=== PATIENT | female | born 1955 | race Caucasian/White ===

== ENCOUNTER 2019-12-31 18:40 | Outpatient (CLI) | payer OTHER ==
[2019-12-31 19:09] LABS: BASOPHILS % (AUTO) 0.3 %; CALCIUM 9.2 mg/dL (8.5-10.3); CREATININE 0.8 mg/dL (0.4-1.0); EOSINOPHILS # (AUTO) 0.1 10^3/uL (0.0-0.7); EOSINOPHILS % (AUTO) 0.7 %; LYMPHOCYTES # (AUTO) 1.6 10^3/uL (1.5-3.5); LYMPHOCYTES % (AUTO) 16.7 %; MEAN CORPUSCULAR HEMOGLOBIN 29.3 pg (27.0-31.0); MEAN CORPUSCULAR HGB CONC 32.2 g/dL (32.0-36.0); MEAN PLATELET VOLUME 10.6 fL (7.9-10.8); MONOCYTES # (AUTO) 0.5 10^3/uL (0.0-1.0); MONOCYTES % (AUTO) 5.6 %; NEUTROPHILS # (AUTO) 7.2 10^3/uL (1.5-6.6); NEUTROPHILS % (AUTO) 76.3 %; PLT - PLATELET COUNT 323 10^3/uL (130-450); RED BLOOD COUNT 4.44 10^6/uL (4.20-5.40); RED CELL DISTRIBUTION WIDTH 13.4 % (12.0-15.0); WHITE BLOOD COUNT 9.5 x10^3/uL (4.8-10.8)
== END 2019-12-31 18:41 | disposition home or self-care (01) ==
LOC: LAB 18:40
PROVIDERS: ATTEND Physician Assistant
DX: I50.9 Heart failure, unspecified (principal)
CPT/HCPCS: 36415; 80048; 83880; 85025

== ENCOUNTER 2020-05-28 10:04 | Emergency (ER) | payer SELFPAY ==
--- NOTE | 2020-05-28 10:10 | ED Physician Documentation ---
PD HPI DYSPNEA - Stated complaint Stated Complaint: SOA/SWOLLEN LEGS - History obtained from History obtained from: Patient - History of Present Illness Timing - onset: How many weeks ago (1) Timing - onset during: Rest (the past couple days), Light activity Timing - duration: Weeks (1) Timing - details: Gradual onset, Still present Inciting event(s): Other (has noted increased swelling of both legs the past week.). No: Out of meds, URI, Immobilization/travel Improved by: Rest Worsened by: Exertion, Laying flat. No: Coughing Associated symptoms: Bilateral edema. No: Fever, Cough, Wheezing Similar symptoms before: Diagnosis (had pneumonia and cardiomyopathy with cardiac arrest about Nov 2017, with ECHO showing EF 20%. On heart meds and ECHO improved to normal 65% over few months, per Printer Assistant, Dr. Alcaraz. She had not been back to Cardiology the past year.) Recently seen: Not recently seen (has been on same meds the past year, refilled by PCP. Has not seen then recently. Today, seen at [facility] and referred to ER for evaluation.) Review of Systems Constitutional: denies: Fever, Chills Nose: denies: Rhinorrhea / runny nose, Congestion Throat: denies: Sore throat Cardiac: reports: Pedal edema. denies: Chest pain / pressure, Palpitations, Calf pain Respiratory: denies: Dyspnea, Cough GI: reports: Constipation. denies: Abdominal Pain, Nausea, Vomiting, Diarrhea Skin: reports: Rash (redness anterior aspect both lower legs slowly the past couple of days. Not too tender. No drainage.). denies: Lesions Musculoskeletal: denies: Neck pain, Back pain Neurologic: reports: Generalized weakness. denies: Focal weakness, Numbness, Near syncope PD PAST MEDICAL HISTORY - Past Medical History Cardiovascular: Congestive heart failure, Hypertension Respiratory: None Neuro: None Endocrine/Autoimmune: Type 2 diabetes - Present Medications Home Medications: Ambulatory Orders Medication Instructions Recorded Confirmed Amlodipine Besylate 5 mg DAILY 05/28/20 05/28/20 Furosemide [Lasix] 20 mg PO DAILY #20 tablet 05/28/20 LORazepam [Ativan] 1 mg PO BID PRN #10 tablet 05/28/20 Losartan Potassium 50 mg DAILY 05/28/20 05/28/20 Metoprolol Tartrate 100 mg PO BID 05/28/20 05/28/20 Omeprazole 20 mg PO DAILY 05/28/20 05/28/20 Ondansetron Odt [Zofran] 4 mg TL Q6H PRN #10 tablet 05/28/20 Potassium Chloride 10 meq PO DAILY #20 tablet.er 05/28/20 Spironolactone 12.5 mg DAILY 05/28/20 05/28/20 Tramadol HCl 50 mg TID 05/28/20 05/28/20 - Allergies Allergies/Adverse Reactions: Allergies Allergy/AdvReac Type Severity Reaction Status Date / Time nickel Allergy Rash Verified 05/28/20 10:12 PD ED PE NORMAL - Vitals Vital signs reviewed: Yes - General General: Alert and oriented X 3, No acute distress (but seems anxious. ), Well developed/nourished - HEENT HEENT: Ears normal, Moist mucous membranes, Pharynx benign - Neck Neck: Supple, no meningeal sign, No adenopathy, Other (JVD noted at 45 degrees) - Cardiac Cardiac: RRR, No murmur - Respiratory Respiratory: No respiratory distress. No: Clear bilaterally (some crackles at bases about [address]. ) - Abdomen Abdomen: Normal bowel sounds, Soft - Back Back: No CVA TTP - Derm Derm: Normal color, Warm and dry - Extremities Extremities: No tenderness to palpate, Normal ROM s pain, No calf tenderness / cord, Other - Neuro Neuro: Alert and oriented X 3, No motor deficit, Normal speech Results - Vitals Vitals: Vital Signs - 24 hr 05/28/20 05/28/20 05/28/20 10:06 11:00 11:09 Temperature 37.1 C 37.3 C Heart Rate 83 71 70 Respiratory 20 20 18 Rate Blood Pressure 136/105 H 186/74 H 176/73 H O2 Saturation 96 96 96 05/28/20 05/28/20 05/28/20 12:00 13:56 15:00 Temperature Heart Rate 60 57 L 92 Respiratory 16 14 16 Rate Blood Pressure 156/77 H 162/64 H 132/77 H O2 Saturation 93 100 100 Oxygen O2 Source Room air - EKG (time done) 10:21 Rate: Rate (enter#) (77) Rhythm: NSR [place]: Normal Intervals: Normal [place] QRS: Normal Ischemia: Normal ST segments. No: ST elevation c/w ischemia, ST depression - Labs Labs: Laboratory Tests 05/28/20 05/28/20 05/28/20 10:50 10:50 10:50 WBC 10.4 RBC 4.43 Hgb 13.0 Hct 40.0 MCV 90.3 MCH 29.3 MCHC 32.5 RDW 13.3 Plt Count 299 MPV 10.9 H Neut # (Auto) 9.3 H Lymph # (Auto) 0.7 L [place] # (Auto) 0.3 Eos # (Auto) 0.0 Baso # (Auto) 0.0 Absolute Nucleated RBC 0.00 Nucleated RBC % 0.0 Sodium 136 Potassium 3.4 L Chloride 102 Carbon Dioxide 26 Anion Gap 8.0 BUN 11 Creatinine 0.9 Estimated GFR (MDRD) 63 L Glucose 175 H Calcium 9.3 Magnesium 2.4 Total Bilirubin 0.7 AST 45 H ALT 18 Alkaline Phosphatase 111 Troponin I High Sens 5.0 B-Natriuretic Peptide Total Protein 9.4 H Albumin 4.0 Globulin 5.4 H Albumin/Globulin Ratio 0.7 L Lipase 25 05/28/20 10:50 WBC RBC Hgb Hct MCV MCH MCHC RDW Plt Count MPV Neut # (Auto) Lymph # (Auto) [place] # (Auto) Eos # (Auto) Baso # (Auto) Absolute Nucleated RBC Nucleated RBC % Sodium Potassium Chloride Carbon Dioxide Anion Gap BUN Creatinine Estimated GFR (MDRD) Glucose Calcium Magnesium Total Bilirubin AST ALT Alkaline Phosphatase Troponin I High Sens B-Natriuretic Peptide 319 H Total Protein Albumin Globulin Albumin/Globulin Ratio Lipase - Rads (name of study) chest xray Radiology: Prelim report reviewed (no acute process), See rad report PD MEDICAL DECISION MAKING - ED course Complexity details: re-evaluated patient (She did urinate a lot here and is feeling improved. Oximeter is good. ), considered differential (sounds like CHF over the past week without new illness/URI symptoms. Does have anxiety with this. ), d/w patient, d/w device sales consultant (s/w Dr. Alcaraz, her carpet installer, who suggested some med changes. ) Departure - Departure Disposition: 01 Home, Self Care Clinical Impression: Dyspnea Qualifiers: Dyspnea type: unspecified Qualified Code(s): R06.00 - Dyspnea, unspecified CHF (congestive heart failure) Qualifiers: Heart failure type: unspecified Heart failure chronicity: acute on chronic Qualified Code(s): I50.9 - Heart failure, unspecified Cardiomyopathy Qualifiers: Cardiomyopathy type: unspecified Qualified Code(s): I42.9 - Cardiomyopathy, unspecified Condition: Stable Record reviewed to determine appropriate education?: Yes Instructions: ED CHF General, ED Dyspnea Shortness of Breath Follow-Up: ADITYA LEE PA-C [Primary Care Provider] - Ruben Alcaraz MD [Physician No Access] - Prescriptions: LORazepam [Ativan] 1 mg PO BID PRN #10 tablet PRN Reason: Anxiety Furosemide [Lasix] 20 mg PO DAILY #20 tablet Potassium Chloride 10 meq PO DAILY #20 tablet.er Ondansetron Odt [Zofran] 4 mg TL Q6H PRN #10 tablet PRN Reason: Nausea / Vomiting Comments: I talked with Dr. Alcaraz your carpet installer who suggested the following: Increase your spironolactone to 25 mg daily from the current 12.5 mg. 2. Add furosemide 20 mg daily 3. Add a potassium supplement daily In addition we can add ondansetron if needed for nausea and lorazepam if needed for anxiety in the short-term. I would anticipate improvement in your breathing over the next several days. Contact Dr. Alcaraz's office for follow-up appointment for next week or see if they want to just keep it for February 21 though it sounded like he wanted a sooner follow-up Discharge Date/Time: 05/28/20 16:11
[2020-05-28] MEDS ORDERED: FUROSEMIDE 40 MG/4 ML VIAL IVP STA (10:51)
[2020-05-28] MEDS ORDERED: MAG HYDROX/AL HYDROX/SIMETH 30 ML UDC PO STA (10:51)
[2020-05-28] MEDS ORDERED: ONDANSETRON 4 MG/2 ML VIAL IVP STA (10:51)
[2020-05-28] MEDS ORDERED: FAMOTIDINE 20 MG/2 ML SYRINGE IVP STA (10:51)
[2020-05-28] MEDS ORDERED: LORazepam 2 MG/ML VIAL IVP STA (10:51)
[2020-05-28] MEDS ORDERED: LIDOCAINE VISCOUS 2% 15 ML UDC MM STA (10:51)
[2020-05-28 11:09] LABS: BASOPHILS % (AUTO) 0.4 %; EOSINOPHILS % (AUTO) 0.4 %; LYMPHOCYTES # (AUTO) 0.7 10^3/uL (1.5-3.5); MEAN CORPUSCULAR HEMOGLOBIN 29.3 pg (27.0-31.0); MEAN CORPUSCULAR HGB CONC 32.5 g/dL (32.0-36.0); MEAN CORPUSCULAR VOLUME 90.3 fL (81.0-99.0); MEAN PLATELET VOLUME 10.9 fL (7.9-10.8); MONOCYTES # (AUTO) 0.3 10^3/uL (0.0-1.0); NEUTROPHILS # (AUTO) 9.3 10^3/uL (1.5-6.6); NEUTROPHILS % (AUTO) 88.6 %; PLT - PLATELET COUNT 299 10^3/uL (130-450); RED BLOOD COUNT 4.43 10^6/uL (4.20-5.40); RED CELL DISTRIBUTION WIDTH 13.3 % (12.0-15.0); WHITE BLOOD COUNT 10.4 x10^3/uL (4.8-10.8)
--- NOTE | 2020-05-28 11:13 | XRAY Report ---
PROCEDURE: Chest 1 View X-Ray INDICATIONS: Chest Pain TECHNIQUE: One view of the chest was acquired. COMPARISON: None FINDINGS: Surgical changes and devices: None. Lungs and pleura: No pleural effusions or pneumothorax. Lungs are clear. Mediastinum: Mediastinal contours appear normal. Heart size is normal. Bones and chest wall: No suspicious bony lesions. Overlying soft tissues appear unremarkable. IMPRESSION: No acute cardiopulmonary disease process. Reviewed by: Amira Mueller MD, PhD on 05/28/2020 11:12 AM PDT Approved by: Amira Mueller MD, PhD on 05/28/2020 11:12 AM PDT Station ID: [id number]
[2020-05-28 11:28] LABS: ALBUMIN/GLOBULIN RATIO 0.7 (1.0-2.2); BILIRUBIN,TOTAL 0.7 mg/dL (0.2-1.0); CALCIUM 9.3 mg/dL (8.5-10.3); CREATININE 0.9 mg/dL (0.4-1.0); MAGNESIUM 2.4 mg/dL (1.7-2.8); TOTAL PROTEIN 9.4 g/dL (6.7-8.2)
[2020-05-28] MEDS ORDERED: GI COCKTAIL 120 ML BOTTLE PO PRN (11:43)
[2020-05-28] MEDS ORDERED: POTASSIUM CHLOR 10 MEQ/100 ML 10 MEQ/100 ML BAG IV ONE (11:51)
[2020-05-28 16:19] VITALS: BP 132/77
== END 2020-05-28 16:11 | disposition home or self-care (01) ==
LOC: ED 10:04
DX: I11.0 Hypertensive heart disease with heart failure (principal); I50.9 Heart failure, unspecified; I42.9 Cardiomyopathy, unspecified; F41.9 Anxiety disorder, unspecified; E11.9 Type 2 diabetes mellitus without complications
CPT/HCPCS: 36415; 71045; 80053; 83690; 83735; 83880; 84484; 85025; 93005; 96374; 96375; 99284; 99285; A9270; J2060

== ENCOUNTER 2020-06-09 15:11 | Emergency (ER) | payer SELFPAY ==
--- NOTE | 2020-06-09 15:40 | ED Physician Documentation ---
PD HPI DYSPNEA - Stated complaint Stated Complaint: SOA/FAINT - Chief complaint Chief Complaint: Cardiac - History obtained from History obtained from: Patient - History of Present Illness Timing - onset: Today Timing - onset during: Light activity (she has had some dyspnea feeling for few weeks. No wheezing nor cough. Feeling of anxiety as well and was improved with Ativan given at recent ED visit for same symptoms. She has appt with PMD in few days to discuss meds for anxiety. Has been on many SSRIs in the past without improvement.) Timing - details: Gradual onset, Waxing and waning Inciting event(s): Emotional event. No: URI, Exercise, Immobilization/travel Improved by: Rest Worsened by: Exertion, Other (anxiety) Associated symptoms: No: Fever, Cough Similar symptoms before: Diagnosis (anxiety) Recently seen: Emergency Dept (couple weeks ago for same. Had gotten Rx for Ativan to use PRN and only just yesterday had used the last of them, she says did work for the symptoms when used PRN.) Review of Systems Constitutional: denies: Fever, Chills, Myalgias Nose: denies: Rhinorrhea / runny nose, Congestion Throat: denies: Sore throat Respiratory: denies: Cough GI: denies: Nausea, Vomiting, Diarrhea Skin: denies: Rash, Lesions Neurologic: reports: Near syncope (felt lightheaded when breathing harder today, some tingling in fingers as well.). denies: Focal weakness, Numbness, Altered mental status, Headache PD PAST MEDICAL HISTORY - Past Medical History Cardiovascular: Congestive heart failure, Hypertension Respiratory: None Neuro: None Endocrine/Autoimmune: Type 2 diabetes Psych: Anxiety - Present Medications Home Medications: Ambulatory Orders Medication Instructions Recorded Confirmed Amlodipine Besylate 5 mg DAILY 05/28/20 05/28/20 Furosemide [Lasix] 20 mg PO DAILY #20 tablet 05/28/20 LORazepam [Ativan] 1 mg PO BID PRN #10 tablet 05/28/20 Losartan Potassium 50 mg DAILY 05/28/20 05/28/20 Metoprolol Tartrate 100 mg PO BID 05/28/20 05/28/20 Omeprazole 20 mg PO DAILY 05/28/20 05/28/20 Ondansetron Odt [Zofran] 4 mg TL Q6H PRN #10 tablet 07/23/20 Potassium Chloride 10 meq PO DAILY #20 tablet.er 05/28/20 Spironolactone 12.5 mg DAILY 05/28/20 05/28/20 Tramadol HCl 50 mg TID 05/28/20 05/28/20 Amitriptyline HCl 25 mg PO QPM PRN #20 tablet 06/09/20 LORazepam [Ativan] 1 mg PO BID PRN #12 tablet 06/09/20 - Allergies Allergies/Adverse Reactions: Allergies Allergy/AdvReac Type Severity Reaction Status Date / Time nickel Allergy Rash Verified 06/09/20 15:14 - Social History Does the pt smoke?: No Smoking Status: Never smoker PD ED PE NORMAL - Vitals Vital signs reviewed: Yes - General General: Alert and oriented X 3, Well developed/nourished, Other (presents as very anxious, states gets worried about things easily. Very worried/anxious about having serious process when she gets the dyspnea feeling. ) - HEENT HEENT: Pharynx benign - Neck Neck: Supple, no meningeal sign, No adenopathy - Cardiac Cardiac: RRR, No murmur - Respiratory Respiratory: No respiratory distress, Clear bilaterally - Abdomen Abdomen: Soft, Non tender - Derm Derm: Normal color, Warm and dry - Extremities Extremities: No tenderness to palpate, Normal ROM s pain, No edema, No calf tenderness / cord - Neuro Neuro: Alert and oriented X 3, No motor deficit, Normal speech Results - Vitals Vitals: Oxygen O2 Source Room air - EKG (time done) 15:16 Rate: Rate (enter#) (88) Rhythm: NSR [place]: Normal Intervals: Normal [place] QRS: Normal Ischemia: Normal ST segments. No: ST elevation c/w ischemia, ST depression - Labs Labs: Laboratory Tests 06/09/20 06/09/20 06/09/20 15:40 15:40 15:40 WBC 11.9 H RBC 4.60 Hgb 13.5 Hct 41.4 MCV 90.0 MCH 29.3 MCHC 32.6 RDW 13.3 Plt Count 359 MPV 10.7 Neut # (Auto) 9.7 H Lymph # (Auto) 1.2 L [place] # (Auto) 0.8 Eos # (Auto) 0.0 Baso # (Auto) 0.0 Absolute Nucleated RBC 0.00 Nucleated RBC % 0.0 Sodium 137 Potassium 4.1 Chloride 98 L Carbon Dioxide 29 Anion Gap 10.0 BUN 17 Creatinine 1.0 Estimated GFR (MDRD) 56 L Glucose 132 H Calcium 9.4 Total Bilirubin 0.7 AST 22 ALT 18 Alkaline Phosphatase 109 Troponin I High Sens < 2.3 L Total Protein 9.4 H Albumin 4.4 Globulin 5.0 H Albumin/Globulin Ratio 0.9 L Lipase 28 - Rads (name of study) chest xray Radiology: Prelim report reviewed (no acute process), See rad report PD MEDICAL DECISION MAKING - ED course Complexity details: re-evaluated patient (Normal labs and xray. Her suymptoms seem largely anxiety. Can give short term Ativan again, with discussion that this would not be the penitentiary solution (unless occasional PRN for acute attacks, but not regular dosing) as other meds are better.), considered differential, d/w patient ED course: She had not had improvement with many different SSRIs tried in past, nor with Trazodone. She did not seem familiar with Elavil/amitryptilline, which could be used for sleep and some general anxiety and would be effective short term unlike SSRIs and such. She can discuss this with her PMD in appt this week. Short term Ativan to bridge getting started on other anti-anxiety med. Departure - Departure Disposition: 01 Home, Self Care Clinical Impression: Anxiety Dyspnea Qualifiers: Dyspnea type: shortness of breath Qualified Code(s): R06.02 - Shortness of breath Condition: Stable Record reviewed to determine appropriate education?: Yes Follow-Up: ADITYA LEE PA-C [Primary Care Provider] - Ruben Alcaraz MD [Physician No Access] - Prescriptions: Amitriptyline HCl 25 mg PO QPM PRN #20 tablet PRN Reason: Insomnia LORazepam [Ativan] 1 mg PO BID PRN #12 tablet PRN Reason: Anxiety Comments: Continue the Lorazepam twice daily if needed for anxiety. Continue your other usual medications. Follow-up with your primary care tomorrow. See what they would like to try for you for sleep/anxiety. One consideration would be a low dose amitriptyline or nortriptyline. This would be taken at night to help with sleep and can provide some level of helping with anxiety through the day but should not make you feel daytime sleepy. Discharge Date/Time: 06/09/20 17:22
[2020-06-09 15:49] LABS: BASOPHILS % (AUTO) 0.3 %; EOSINOPHILS % (AUTO) 0.3 %; HGB - HEMOGLOBIN 13.5 g/dL (12.0-16.0); LYMPHOCYTES # (AUTO) 1.2 10^3/uL (1.5-3.5); LYMPHOCYTES % (AUTO) 10.3 %; MEAN CORPUSCULAR HEMOGLOBIN 29.3 pg (27.0-31.0); MEAN CORPUSCULAR HGB CONC 32.6 g/dL (32.0-36.0); MEAN PLATELET VOLUME 10.7 fL (7.9-10.8); MONOCYTES # (AUTO) 0.8 10^3/uL (0.0-1.0); MONOCYTES % (AUTO) 6.6 %; NEUTROPHILS # (AUTO) 9.7 10^3/uL (1.5-6.6); NEUTROPHILS % (AUTO) 82.1 %; PLT - PLATELET COUNT 359 10^3/uL (130-450); RED CELL DISTRIBUTION WIDTH 13.3 % (12.0-15.0); WHITE BLOOD COUNT 11.9 x10^3/uL (4.8-10.8)
[2020-06-09 16:03] LABS: ALBUMIN 4.4 g/dL (3.2-5.5); ALBUMIN/GLOBULIN RATIO 0.9 (1.0-2.2); BILIRUBIN,TOTAL 0.7 mg/dL (0.2-1.0); CALCIUM 9.4 mg/dL (8.5-10.3); TOTAL PROTEIN 9.4 g/dL (6.7-8.2)
--- NOTE | 2020-06-09 16:06 | XRAY Report ---
PROCEDURE: Chest 1 View X-Ray INDICATIONS: Chest pain TECHNIQUE: One view of the chest was acquired. COMPARISON: 05/28/2020 FINDINGS: Surgical changes and devices: None. Lungs and pleura: No pleural effusions or pneumothorax. Lungs are clear. Mediastinum: Mediastinal contours appear normal. Heart size is normal. Bones and chest wall: No suspicious bony lesions. Overlying soft tissues appear unremarkable. IMPRESSION: No acute cardiopulmonary pathology. Reviewed by: Royer Rodriguez MD on 06/09/2020 4:05 PM PDT Approved by: Royer Rodriguez MD on 06/09/2020 4:05 PM PDT Station ID: [id number]
[2020-06-09] MEDS ORDERED: LORazepam 2 MG/ML VIAL IVP STA (16:20)
[2020-06-09 17:15] VITALS: BP 188/81
== END 2020-06-09 17:22 | disposition home or self-care (01) ==
LOC: ED 15:11
DX: F41.9 Anxiety disorder, unspecified (principal); R06.02 Shortness of breath; I10 Essential (primary) hypertension; E11.9 Type 2 diabetes mellitus without complications
CPT/HCPCS: 36415; 71045; 80053; 83690; 84484; 85025; 93005; 99284; J2060

== ENCOUNTER 2020-09-05 20:12 | Outpatient (CLI) | payer SELFPAY | END 2020-09-05 20:13 | disposition short-term general hospital (02) | LOC: EMS 20:12 | PROVIDERS: ATTEND Surgery | DX: R07.89 Other chest pain (principal); F41.9 Anxiety disorder, unspecified; R00.2 Palpitations | CPT/HCPCS: A0425; A0427 ==

== ENCOUNTER 2020-10-01 07:41 | Outpatient (CLI) | payer OTHER | END 2020-10-01 07:42 | disposition EMS.NT | LOC: EMS 07:41 | PROVIDERS: ATTEND Surgery | DX: T81.89XA Other complications of procedures, not elsewhere classified, initial encounter (principal) ==

== ENCOUNTER 2020-10-26 13:39 | Outpatient (CLI) | payer OTHER | END 2020-10-26 13:40 | disposition left against medical advice (07) | LOC: EMS 13:39 | PROVIDERS: ATTEND Surgery | DX: I10 Essential (primary) hypertension (principal) ==

== ENCOUNTER 2020-11-09 11:41 | Outpatient (CLI) | payer MEDICARE, OTHER ==
--- NOTE | 2020-11-09 16:31 | XRAY Report ---
PROCEDURE: Shoulder 3 View LT INDICATIONS: SHOULDER IMPINGEMENT SYNDROME OF L SHOULDER TECHNIQUE: 4 views of the shoulder were acquired. COMPARISON: CXR 06/09/2020, 05/28/2020. FINDINGS: Bones: No fractures or dislocations. There is inferior spurring at the acromion. Mild to moderate de generative changes of the left shoulder. No suspicious bony lesions. Visualized ribs appear intact. ACDF. Post interval median sternotomy and CABG. Soft tissues: No suspicious soft tissue calcifications. IMPRESSION: Inferior spurring at the acromium. This could result in rotator cuff impingement. Consider further evaluation with MRI of the shoulder. Mild to moderate degenerative change of the left shoulder appreciated. Reviewed by: Marc Arceo MD on 11/09/2020 3:30 PM [facility] Approved by: Marc Arceo MD on 11/09/2020 3:30 PM [facility] Station ID: [id number]
== END 2020-11-09 23:59 | disposition home or self-care (01) ==
LOC: DI.N 11:41
PROVIDERS: ATTEND Physician Assistant
DX: M75.42 Impingement syndrome of left shoulder (principal); M19.012 Primary osteoarthritis, left shoulder

== ENCOUNTER 2020-11-13 15:52 | Outpatient (CLI) | payer OTHER | END 2020-11-13 15:53 | disposition short-term general hospital (02) | LOC: EMS 15:52 | PROVIDERS: ATTEND Surgery | DX: I48.91 Unspecified atrial fibrillation (principal); I10 Essential (primary) hypertension | CPT/HCPCS: A0425; A0427 ==

== ENCOUNTER 2020-12-03 14:57 | Outpatient (CLI) | payer MEDICARE | END 2020-12-03 14:58 | disposition home or self-care (01) | LOC: LAB.S 14:57 | PROVIDERS: ATTEND Physician Assistant | DX: I48.91 Unspecified atrial fibrillation (principal); Z79.01 Long term (current) use of anticoagulants | CPT/HCPCS: 85610 ==

== ENCOUNTER 2020-12-06 01:40 | Outpatient (CLI) | payer MEDICARE | END 2020-12-06 01:41 | disposition critical access hospital (66) | LOC: EMS 01:40 | PROVIDERS: ATTEND Surgery | DX: R20.0 Anesthesia of skin (principal); R20.2 Paresthesia of skin | CPT/HCPCS: A0425; A0427 ==

== ENCOUNTER 2020-12-06 02:02 | Emergency (ER) | payer MEDICARE ==
--- NOTE | 2020-12-06 02:04 | ED Physician Documentation ---
PD HPI CHEST PAIN - Stated complaint Stated Complaint: R CHEST NUMBNESS - History obtained from History obtained from: Patient - History of Present Illness Timing - onset: How many hours ago (3) Timing - onset during: Rest Timing - details: Abrupt onset Pain level max: 0 Pain level now: 0 Quality: Other (numbness) Location: Right chest Radiation: Neck Improved by: Nothing Worsened by: Other (no exacerbating factors) Associated symptoms: No: Shortness of air, Diaphoresis, Nausea, Vomiting, Feeling faint / dizzy, General Weakness, Palpitations, Cough Similar symptoms before: Has not had sx before - Additional information Additional information: BIBA. patient was at home at rest approximately 3 hours ago when she developed right-sided chest numbness which radiates to the right side of her neck where it is described as more of a "pins and needles" sensation. denies h/o similar symptoms. she was started on warfarin 4 days ago for atrial fibrillation. 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 denies ORTIZ, visual changes, chest pain, dyspnea Review of Systems Constitutional: reports: Reviewed and negative Eyes: reports: Reviewed and negative Cardiac: reports: Reviewed and negative Respiratory: reports: Reviewed and negative GI: reports: Reviewed and negative Musculoskeletal: reports: Extremity pain (LUE (ongoing since her CABG 09/10/20; patient says this is thought to be due to positioning during the surgery that resulted in compression of her median nerve; she is scheduled to see a neurologist for this)) Neurologic: reports: Numbness. denies: Generalized weakness, Focal weakness, Difficulty speaking, Headache PD PAST MEDICAL HISTORY - Past Medical History Cardiovascular: Congestive heart failure, Hypertension Respiratory: None Neuro: None Endocrine/Autoimmune: Type 2 diabetes GI: GERD DOLL REPAIRER: Ovarian cysts : None HEENT: None Psych: Anxiety Musculoskeletal: Chronic back pain Derm: None - Past Surgical History Past Surgical History: Yes General: Cholecystectomy /DOLL REPAIRER: Hysterectomy - Present Medications Home Medications: Ambulatory Orders Medication Instructions Recorded Confirmed Amlodipine Besylate 5 mg DAILY 05/28/20 05/28/20 Furosemide [Lasix] 20 mg PO DAILY #20 tablet 05/28/20 12/06/20 LORazepam [Ativan] 1 mg PO BID PRN #10 tablet 05/28/20 Losartan Potassium 50 mg DAILY 05/28/20 12/06/20 Metoprolol Tartrate 100 mg PO BID 05/28/20 12/06/20 Omeprazole 20 mg PO DAILY 05/28/20 12/06/20 Ondansetron Odt [Zofran] 4 mg TL Q6H PRN #10 tablet 05/28/20 Potassium Chloride 10 meq PO DAILY #20 tablet.er 05/28/20 12/06/20 Spironolactone 12.5 mg DAILY 05/28/20 05/28/20 Tramadol HCl 50 mg TID 05/28/20 12/06/20 Amitriptyline HCl 25 mg PO QPM PRN #20 tablet 06/09/20 LORazepam [Ativan] 1 mg PO BID PRN #12 tablet 06/09/20 Digoxin [Lanoxin] 12/06/20 Docusate Sodium [Dulcolax Stool 12/06/20 Softener] Warfarin [Coumadin] 12/06/20 - Allergies Allergies/Adverse Reactions: Allergies Allergy/AdvReac Type Severity Reaction Status Date / Time codeine Allergy Unknown Verified 12/06/20 02:18 lisinopril Allergy Unknown Verified 12/06/20 02:18 naproxen [From Aleve] Allergy Unknown Verified 12/06/20 02:18 nickel Allergy Rash Verified 06/09/20 15:14 - Social History Does the pt smoke?: No Smoking Status: Never smoker Does the pt drink ETOH?: No Does the pt have substance abuse?: No - Immunizations Immunizations are current?: Yes - POLST Patient has POLST: No PD ED PE NORMAL - Vitals Vital signs reviewed: Yes - General General: Alert and oriented X 3, No acute distress, Well developed/nourished - HEENT HEENT: PERRL, EOMI, Moist mucous membranes - Neck Neck: Supple, no meningeal sign, No JVD - Cardiac Cardiac: No murmur - Respiratory Respiratory: No respiratory distress, Clear bilaterally - Abdomen Abdomen: Soft, Non tender - Derm Derm: Normal color, Warm and dry - Extremities Extremities: No edema, Other (mild swelling and contracture of left hand/wrist (patient says this is ongoing since CABG 09/10/20)) - Neuro Neuro: Alert and oriented X 3, lean manufacturing leader 2-12 intact, No motor deficit, No sensory deficit, Normal speech Eye Opening: Spontaneous Motor: Obeys Commands Verbal: Oriented GCS Score: 15 PD ED PE EXPANDED - Cardiac Cardiac: Regular Rate, Irregularly irregular. No: Chest wall TTP Results - Vitals Vitals: Vital Signs - 24 hr 12/06/20 12/06/20 12/06/20 02:12 02:36 04:43 Temperature 36.6 C 36.6 C Heart Rate 102 H 103 H 92 Respiratory 14 19 Rate Blood Pressure 120/73 120/73 149/87 H O2 Saturation 100 100 12/06/20 06:02 Temperature Heart Rate 85 Respiratory 20 Rate Blood Pressure 123/75 O2 Saturation 100 Oxygen O2 Source Room air - EKG (time done) No standard instances Rate: Rate (enter#) (95) Rhythm: Atrial fibrillation, Other (PVC) [place]: LAD QRS: Normal Ischemia: Normal ST segments - Labs Labs: Laboratory Tests 12/06/20 12/06/20 12/06/20 03:45 03:45 03:45 WBC 10.2 RBC 3.69 L Hgb 11.1 L Hct 36.2 L MCV 98.1 MCH 30.1 MCHC 30.7 L RDW 15.6 H Plt Count 311 MPV 10.3 Neut # (Auto) 7.8 H Lymph # (Auto) 1.5 [place] # (Auto) 0.6 Eos # (Auto) 0.1 Baso # (Auto) 0.0 Absolute Nucleated RBC 0.00 Nucleated RBC % 0.0 PT 15.3 H INR 1.4 H APTT 30.7 Sodium 135 Potassium 3.9 Chloride 102 Carbon Dioxide 22 Anion Gap 11.0 BUN 20 Creatinine 0.8 Estimated GFR (MDRD) 72 L Glucose 125 H Calcium 9.0 Troponin I High Sens 12/06/20 12/06/20 03:45 05:27 WBC RBC Hgb Hct MCV MCH MCHC RDW Plt Count MPV Neut # (Auto) Lymph # (Auto) [place] # (Auto) Eos # (Auto) Baso # (Auto) Absolute Nucleated RBC Nucleated RBC % PT INR APTT Sodium Potassium Chloride Carbon Dioxide Anion Gap BUN Creatinine Estimated GFR (MDRD) Glucose Calcium Troponin I High Sens 55.0 H* 49.8 H* - Rads (name of study) CT head Radiology: Prelim report reviewed, See rad report CXR Radiology: Prelim report reviewed, See rad report PD MEDICAL DECISION MAKING - ED course Complexity details: reviewed results, re-evaluated patient, considered differential, d/w patient ED course: The distribution of patient's symptoms (chest and right neck but not face nor extremities) makes CVA unlikely, and that it is right-sided and numbness rather than pain/pressure makes angina unlikely. She has mildly elevated high sensitivity troponin without concerning EKG findings, and 2-hour repeat troponin is decreased from first measurement. Her testing is thus reassuring and she is discharged home with instruction to return if worse, follow up with her card iologist as well as the neurologist as scheduled. I discussed test results with her including her INR of 1.4 and instructed her to discuss this result with her hydro technician to see if a change in her warfarin dose is needed. her NIHSS score is zero (testing of light touch sensation of her face and extremities reveals equal sensation bilaterally) Departure - Departure Disposition: Home, Self Care Clinical Impression: Paresthesias Condition: Good Instructions: ED Paraesthesias Follow-Up: ADITYA LEE PA-C [Primary Care Provider] - Discharge Date/Time: 12/06/20 06:25 NIHSS - Level of Consciousness Level of consciousness: (0) Alert, Keenly responsive LOC Questions: (0) Answers both Q's correct LOC Commands: (0) Performs both correctly - Gaze Best Gaze: (0) Normal - Visual Visual: (0) No loss - Facial Palsy Facial Palsy: (0) Normal, symmetrical movement - Motor Arms (both separate) Motor Arm (right): (0) No drift Motor Arm (left): (0) No drift - Motor Legs (both separate) Motor Leg (right): (0) No drift Motor Leg (left): (0) No drift - Limb Ataxia Limb Ataxia: (0) Absent - Sensory Sensory: (0) Normal - Best Language Best Language: (0) No aphasia - Dysarthria Dysarthria: (0) Normal - Extinction and Inattention (formally neg Extinction and inattention: (0) No abnormality - Total Score/Results Total Score/Result: 0
[2020-12-06 03:50] LABS: BASOPHILS % (AUTO) 0.4 %; EOSINOPHILS # (AUTO) 0.1 10^3/uL (0.0-0.7); EOSINOPHILS % (AUTO) 1.3 %; HGB - HEMOGLOBIN 11.1 g/dL (12.0-16.0); LYMPHOCYTES # (AUTO) 1.5 10^3/uL (1.5-3.5); LYMPHOCYTES % (AUTO) 15.1 %; MEAN CORPUSCULAR HEMOGLOBIN 30.1 pg (27.0-31.0); MEAN CORPUSCULAR HGB CONC 30.7 g/dL (32.0-36.0); MEAN CORPUSCULAR VOLUME 98.1 fL (81.0-99.0); MEAN PLATELET VOLUME 10.3 fL (7.9-10.8); MONOCYTES # (AUTO) 0.6 10^3/uL (0.0-1.0); MONOCYTES % (AUTO) 6.2 %; NEUTROPHILS # (AUTO) 7.8 10^3/uL (1.5-6.6); NEUTROPHILS % (AUTO) 76.5 %; PLT - PLATELET COUNT 311 10^3/uL (130-450); RED BLOOD COUNT 3.69 10^6/uL (4.20-5.40); RED CELL DISTRIBUTION WIDTH 15.6 % (12.0-15.0); WHITE BLOOD COUNT 10.2 x10^3/uL (4.8-10.8)
[2020-12-06 03:56] LABS: CREATININE 0.8 mg/dL (0.4-1.0)
[2020-12-06 03:58] LABS: INR 1.4 (0.8-1.2); PT - PROTHROMBIN TIME 15.3 secs (9.9-12.6)
[2020-12-06 04:05] LABS: PARTIAL THROMBOPLASTIN TIME 30.7 secs (24.9-33.3)
[2020-12-06] MEDS ORDERED: traMADol 50 MG TABLET PO STA (04:18)
[2020-12-06 06:03] VITALS: BP 123/75
--- NOTE | 2020-12-06 08:04 | XRAY Report ---
PROCEDURE: Chest 2 View X-Ray INDICATIONS: right chest numbness TECHNIQUE: 2 view(s) of the chest. COMPARISON: 06/09/2020, 05/28/2020 FINDINGS: Surgical changes and devices: Sternotomy changes are noted. Cervical spine fixation hardware can b e seen. Apparent cholecystectomy clips can be seen on the lateral view. Lungs and pleura: No pleural effusions or pneumothorax. Lungs are clear. Mediastinum: The aorta demonstrates mild prominence and tortuosity. Heart size is normal. Bones and chest wall: No suspicious bony abnormalities. Age-appropriate degenerative changes are se en. There is accentuated thoracic kyphosis. Soft tissues appear unremarkable. IMPRESSION: No acute cardiopulmonary process is seen. Interval sternotomy change. Note: No significant discrepancy from the preliminary report. Reviewed by: Rk Chopra MD on 12/06/2020 7:03 AM [facility] Approved by: Rk Chopra MD on 12/06/2020 7:03 AM [facility] Station ID: [id number]
--- NOTE | 2020-12-06 08:05 | CT Report ---
PROCEDURE: HEAD WO INDICATIONS: right chest/neck numbness TECHNIQUE: Noncontrast 4.5 mm thick angled axial sections acquired from the foramen magnum to the vertex. For r adiation dose reduction, the following was used: automated exposure control, adjustment of mA and/or kV according to patient size. COMPARISON: None. FINDINGS: Image quality: Excellent. CSF spaces: Basal cisterns are patent. No extra-axial fluid collections. Ventricles are normal in size and shape. Brain: No midline shift. No intracranial masses or hemorrhage. Casas-white matter interface is norm al. Skull and face: Calvarium and visualized facial bones are intact, without suspicious lesions. Sinuses: Visualized sinuses and mastoids are clear. IMPRESSION: Unremarkable intracranial study for age. Note: No significant discrepancy from the preliminary report. Reviewed by: Rk Chopra MD on 12/06/2020 7:04 AM [facility] Approved by: Rk Chopra MD on 12/06/2020 7:04 AM [facility] Station ID: [id number]
== END 2020-12-06 06:25 | disposition home or self-care (01) ==
LOC: EDUNIT# → ED 02:02 → SUPCPDRO 02:02 → ED 06:25
DX: R20.2 Paresthesia of skin (principal); R79.1 Abnormal coagulation profile; R79.89 Other specified abnormal findings of blood chemistry; I48.91 Unspecified atrial fibrillation; Z79.01 Long term (current) use of anticoagulants; I49.3 Ventricular premature depolarization; Z95.1 Presence of aortocoronary bypass graft; R22.32 Localized swelling, mass and lump, left upper limb; I11.0 Hypertensive heart disease with heart failure; I50.9 Heart failure, unspecified; E11.9 Type 2 diabetes mellitus without complications
CPT/HCPCS: 36415; 70450; 71046; 80048; 84484; 85025; 85610; 85730; 93005; 99284; A9270

== ENCOUNTER 2020-12-09 17:18 | Outpatient (CLI) | payer MEDICARE ==
[2020-12-09 20:15] LABS: HGB - HEMOGLOBIN 9.9 g/dL (12.0-16.0); MEAN CORPUSCULAR HEMOGLOBIN 29.8 pg (27.0-31.0); MEAN CORPUSCULAR HGB CONC 30.4 g/dL (32.0-36.0); MEAN CORPUSCULAR VOLUME 98.2 fL (81.0-99.0); MEAN PLATELET VOLUME 11.4 fL (7.9-10.8); RED BLOOD COUNT 3.32 10^6/uL (4.20-5.40); RED CELL DISTRIBUTION WIDTH 15.5 % (12.0-15.0); WHITE BLOOD COUNT 11.9 x10^3/uL (4.8-10.8)
[2020-12-09 20:42] LABS: CREATININE 0.8 mg/dL (0.4-1.0)
== END 2020-12-09 17:19 | disposition home or self-care (01) ==
LOC: LAB.S 17:18
PROVIDERS: ATTEND Physician Assistant
DX: I50.9 Heart failure, unspecified (principal); Z79.01 Long term (current) use of anticoagulants; I48.91 Unspecified atrial fibrillation
CPT/HCPCS: 36415; 80048; 83880; 85027; 85610

== ENCOUNTER 2020-12-15 14:22 | Outpatient (CLI) | payer MEDICARE | END 2020-12-15 14:23 | disposition home or self-care (01) | LOC: LAB.S 14:22 | PROVIDERS: ATTEND Physician Assistant | DX: I48.91 Unspecified atrial fibrillation (principal); Z79.01 Long term (current) use of anticoagulants | CPT/HCPCS: 85610 ==

== ENCOUNTER 2020-12-23 12:07 | Outpatient (CLI) | payer MEDICARE ==
[2020-12-23 15:40] LABS: BASOPHILS % (AUTO) 0.4 %; EOSINOPHILS # (AUTO) 0.1 10^3/uL (0.0-0.7); EOSINOPHILS % (AUTO) 0.7 %; HGB - HEMOGLOBIN 10.2 g/dL (12.0-16.0); LYMPHOCYTES # (AUTO) 1.2 10^3/uL (1.5-3.5); LYMPHOCYTES % (AUTO) 11.2 %; MEAN CORPUSCULAR VOLUME 96.6 fL (81.0-99.0); MONOCYTES # (AUTO) 0.5 10^3/uL (0.0-1.0); MONOCYTES % (AUTO) 4.9 %; NEUTROPHILS # (AUTO) 9.1 10^3/uL (1.5-6.6); PLT - PLATELET COUNT 378 10^3/uL (130-450); RED BLOOD COUNT 3.52 10^6/uL (4.20-5.40); RED CELL DISTRIBUTION WIDTH 15.8 % (12.0-15.0); WHITE BLOOD COUNT 11.1 x10^3/uL (4.8-10.8)
[2020-12-23 16:01] LABS: ALBUMIN 3.9 g/dL (3.2-5.5); ALBUMIN/GLOBULIN RATIO 0.9 (1.0-2.2); ALKALINE PHOSPHATASE 115 IU/L (42-121); ALT ALANINE AMINOTRANSFERASE 34 IU/L (10-60); AST ASPARTATE AMINOTRANSFERASE 27 IU/L (10-42); BILIRUBIN,TOTAL 0.8 mg/dL (0.2-1.0); BUN - BLOOD UREA NITROGEN 21 mg/dL (6-20); CALCIUM 9.5 mg/dL (8.5-10.3); CARBON DIOXIDE - CO2 21 mmol/L (21-32); CHLORIDE 105 mmol/L (101-111); CHOL/HDL RATIO 4.7 (<4.4); CHOLESTEROL 185 mg/dL; CREATININE 0.9 mg/dL (0.4-1.0); GLUCOSE 167 mg/dL (70-100); HDL CHOLESTEROL 39 mg/dL; LDL CHOLESTEROL,CALCULATED 117 mg/dL; TOTAL PROTEIN 8.4 g/dL (6.7-8.2); VLDL CHOLESTEROL 29 mg/dL
[2020-12-23 16:10] LABS: HEMOGLOBIN A1c% 6.2 % (4.27-6.07)
[2020-12-23 16:17] LABS: CREATININE,URINE 209.3 mg/dL; MICROALBUM/CREATININE RATIO,UR 12.4 ug/mg (<30.0); MICROALBUMIN,URINE 2.6 mg/dL (0-300.0)
[2020-12-23 16:47] LABS: INR 2.4 (0.8-1.2); PT - PROTHROMBIN TIME 25.7 secs (9.9-12.6)
== END 2020-12-23 12:08 | disposition home or self-care (01) ==
LOC: LAB.S 12:07
PROVIDERS: ATTEND Physician Assistant
DX: I25.10 Atherosclerotic heart disease of native coronary artery without angina pectoris (principal); Z79.01 Long term (current) use of anticoagulants; I48.91 Unspecified atrial fibrillation; I13.0 Hypertensive heart and chronic kidney disease with heart failure and stage 1 through stage 4 chronic kidney disease, or unspecified chronic kidney disease; N18.30 Chronic kidney disease, stage 3 unspecified; I50.9 Heart failure, unspecified
CPT/HCPCS: 36415; 80053; 80061; 82043; 82570; 83036; 83721; 85025; 85610

== ENCOUNTER 2021-01-15 16:06 | Outpatient (CLI) | payer MEDICARE | END 2021-01-15 16:07 | disposition home or self-care (01) | LOC: LAB.S 16:06 | PROVIDERS: ATTEND Physician Assistant | DX: Z79.01 Long term (current) use of anticoagulants (principal); I48.91 Unspecified atrial fibrillation | CPT/HCPCS: 85610 ==

== ENCOUNTER 2021-01-26 09:39 | Outpatient (CLI) | payer MEDICARE ==
[2021-01-26 15:12] LABS: BASOPHILS # (AUTO) 0.1 10^3/uL (0.0-0.1); BASOPHILS % (AUTO) 0.5 %; EOSINOPHILS # (AUTO) 0.1 10^3/uL (0.0-0.7); EOSINOPHILS % (AUTO) 1.2 %; HCT - HEMATOCRIT 37.8 % (37.0-47.0); HGB - HEMOGLOBIN 11.3 g/dL (12.0-16.0); LYMPHOCYTES # (AUTO) 1.4 10^3/uL (1.5-3.5); LYMPHOCYTES % (AUTO) 14.8 %; MEAN CORPUSCULAR HGB CONC 29.9 g/dL (32.0-36.0); MEAN CORPUSCULAR VOLUME 93.6 fL (81.0-99.0); MEAN PLATELET VOLUME 11.1 fL (7.9-10.8); MONOCYTES # (AUTO) 0.6 10^3/uL (0.0-1.0); MONOCYTES % (AUTO) 5.8 %; NEUTROPHILS # (AUTO) 7.5 10^3/uL (1.5-6.6); NEUTROPHILS % (AUTO) 77.4 %; PLT - PLATELET COUNT 373 10^3/uL (130-450); RED BLOOD COUNT 4.04 10^6/uL (4.20-5.40); RED CELL DISTRIBUTION WIDTH 15.9 % (12.0-15.0); WHITE BLOOD COUNT 9.7 x10^3/uL (4.8-10.8)
[2021-01-26 15:47] LABS: ALBUMIN 4.2 g/dL (3.2-5.5); BILIRUBIN,TOTAL 0.3 mg/dL (0.2-1.0); CALCIUM 9.2 mg/dL (8.5-10.3); CREATININE 0.9 mg/dL (0.4-1.0); POTASSIUM 4.2 mmol/L (3.5-5.0); TOTAL PROTEIN 8.3 g/dL (6.7-8.2)
[2021-01-26 15:52] LABS: THYROID STIMULATING HORMONE 2.3 uIU/mL (0.34-5.60)
[2021-01-26 19:05] LABS: ESTIMATED AVERAGE GLUCOSE 126 mg/dL (70-100)
== END 2021-01-26 09:40 | disposition home or self-care (01) ==
LOC: LAB.S 09:39
PROVIDERS: ATTEND Physician Assistant
DX: Z79.01 Long term (current) use of anticoagulants (principal); I48.91 Unspecified atrial fibrillation; I25.10 Atherosclerotic heart disease of native coronary artery without angina pectoris; I50.9 Heart failure, unspecified; I13.0 Hypertensive heart and chronic kidney disease with heart failure and stage 1 through stage 4 chronic kidney disease, or unspecified chronic kidney disease; N18.30 Chronic kidney disease, stage 3 unspecified
CPT/HCPCS: 36415; 80053; 83036; 83880; 84443; 85025; 85610

== ENCOUNTER 2021-02-04 08:20 | Outpatient (CLI) | payer MEDICARE ==
--- OUTSIDE RECORDS SUMMARY | 2021-02-10 01:20 | EXTERNAL MEDICAL SUMMARY RPT | Continuity of Care Document ---
:1955 Demographics Phone Unavailable Preferred Language Unknown Marital Status Unknown Oriental Orthodox Affiliation Unknown Race Unknown Ethnic Group Unknown Author Organization [place] Address [address] [phone] Phone Social History date description facility [id number]
== END 2021-02-04 08:21 | disposition short-term general hospital (02) ==
LOC: EMS 08:20
DX: I10 Essential (primary) hypertension (principal); R00.0 Tachycardia, unspecified
CPT/HCPCS: A0425; A0427

== ENCOUNTER 2021-03-11 15:27 | Outpatient (CLI) | payer MEDICARE | END 2021-03-11 15:28 | disposition home or self-care (01) | LOC: LAB.S 15:27 | PROVIDERS: ATTEND Physician Assistant | DX: Z79.01 Long term (current) use of anticoagulants (principal); I48.91 Unspecified atrial fibrillation | CPT/HCPCS: 36416; 85610 ==

== ENCOUNTER 2021-03-19 16:22 | Outpatient (CLI) | payer MEDICARE | END 2021-03-19 16:23 | disposition home or self-care (01) | LOC: LAB.S 16:22 | PROVIDERS: ATTEND Internal Medicine | DX: I48.91 Unspecified atrial fibrillation (principal) | CPT/HCPCS: 36416; 85610 ==

== ENCOUNTER 2021-06-08 14:32 | Outpatient (CLI) | payer MEDICARE ==
[2021-06-08 20:11] LABS: CREATININE 0.8 mg/dL (0.4-1.0)
== END 2021-06-08 14:33 | disposition home or self-care (01) ==
LOC: LAB.S 14:32
PROVIDERS: ATTEND Internal Medicine Cardiovascular Disease
DX: I48.0 Paroxysmal atrial fibrillation (principal)
CPT/HCPCS: 36415; 82565

== ENCOUNTER 2021-10-15 12:33 | Outpatient (CLI) | payer MEDICARE ==
[2021-10-15 15:29] LABS: BASOPHILS % (AUTO) 0.4 %; EOSINOPHILS # (AUTO) 0.1 10^3/uL (0.0-0.7); EOSINOPHILS % (AUTO) 1.3 %; HCT - HEMATOCRIT 40.9 % (37.0-47.0); LYMPHOCYTES # (AUTO) 1.5 10^3/uL (1.5-3.5); LYMPHOCYTES % (AUTO) 15.7 %; MEAN CORPUSCULAR HEMOGLOBIN 28.6 pg (27.0-31.0); MEAN CORPUSCULAR HGB CONC 31.8 g/dL (32.0-36.0); MEAN CORPUSCULAR VOLUME 89.9 fL (81.0-99.0); MEAN PLATELET VOLUME 11.4 fL (7.9-10.8); MONOCYTES # (AUTO) 0.6 10^3/uL (0.0-1.0); MONOCYTES % (AUTO) 6.3 %; NEUTROPHILS # (AUTO) 7.3 10^3/uL (1.5-6.6); PLT - PLATELET COUNT 323 10^3/uL (130-450); RED BLOOD COUNT 4.55 10^6/uL (4.20-5.40); RED CELL DISTRIBUTION WIDTH 14.7 % (12.0-15.0); WHITE BLOOD COUNT 9.6 x10^3/uL (4.8-10.8)
[2021-10-15 15:38] LABS: ALBUMIN 4.1 g/dL (3.2-5.5); ALBUMIN/GLOBULIN RATIO 0.9 (1.0-2.2); ALKALINE PHOSPHATASE 122 IU/L (42-121); ALT ALANINE AMINOTRANSFERASE 19 IU/L (10-60); AST ASPARTATE AMINOTRANSFERASE 20 IU/L (10-42); BILIRUBIN,TOTAL 0.6 mg/dL (0.2-1.0); BUN - BLOOD UREA NITROGEN 12 mg/dL (6-20); CALCIUM 10.2 mg/dL (8.5-10.3); CARBON DIOXIDE - CO2 25 mmol/L (21-32); CHLORIDE 100 mmol/L (101-111); CHOL/HDL RATIO 3.9 (<4.4); CHOLESTEROL 163 mg/dL; CREATININE 0.8 mg/dL (0.4-1.0); GFR - MDRD 72 (>89); GLUCOSE 123 mg/dL (70-100); HDL CHOLESTEROL 42 mg/dL; LDL CHOLESTEROL,CALCULATED 93 mg/dL; LDL/HDL RATIO 2.2 (<4.4); POTASSIUM 3.9 mmol/L (3.5-5.0); SODIUM 136 mmol/L (135-145); TOTAL PROTEIN 8.6 g/dL (6.7-8.2); TRIGLYCERIDES 140 mg/dL; VLDL CHOLESTEROL 28 mg/dL
[2021-10-15 15:49] LABS: THYROID STIMULATING HORMONE 1.99 uIU/mL (0.34-5.60)
[2021-10-15 20:14] LABS: ESTIMATED AVERAGE GLUCOSE 146 mg/dL (70-100); HEMOGLOBIN A1c% 6.7 % (4.27-6.07)
== END 2021-10-15 12:34 | disposition home or self-care (01) ==
LOC: LAB.S 12:33
PROVIDERS: ATTEND Family Medicine
DX: R73.03 Prediabetes (principal); I48.91 Unspecified atrial fibrillation; I10 Essential (primary) hypertension; R60.9 Edema, unspecified; R53.83 Other fatigue; R06.00 Dyspnea, unspecified
CPT/HCPCS: 36415; 80053; 80061; 83036; 83721; 84443; 85025